=== PATIENT | male | born 1970 | race Caucasian/White ===

== ENCOUNTER → 2018-03-14 08:14 | Outpatient (CLI) | payer BC ==
[~2018-03-14 08:14] MED LIST: CARAFATE1 G PO; HYDROCODON-ACE1 EAC7 PO; LOSARTAN POTASS25 MG PO; METOPROLOL TART50 MG PO; PROTONIX20 MG PO
[2018-04-05 06:35] VITALS: BMI 28.5
== END | disposition home or self-care (01) ==
LOC: D.US 08:14
DX: R10.9 Unspecified abdominal pain (principal)

== ENCOUNTER → 2018-03-21 12:23 | Outpatient (CLI) | payer BC ==
[2018-04-05 06:35] VITALS: BMI 28.5
== END | disposition home or self-care (01) ==
LOC: D.NM 12:23
DX: K83.8 Other specified diseases of biliary tract (principal)

== ENCOUNTER 2018-04-05 06:00 | Day surgery (SDC) | payer BC ==
[2018-04-04 16:33] LABS: HEMATOCRIT 41.4 % (42.0-54.0); HEMOGLOBIN 14.6 g/dL (13.5-17.5); MCH 31.5 pg (26.0-34.0); MCHC 35.3 g/dL (31.0-37.0); MCV 89.2 fL (80.0-100.0); MEAN PLATELET VOLUME 10.2 fL (7.4-10.4); RBC 4.64 10x6/uL (4.20-6.10); RDW 12.6 % (11.5-14.5)
[~2018-04-05] VITALS: Ht 170.2 cm; Wt 82.6 kg
[~2018-04-05 06:00] MED LIST changes: -HYDROCODON-ACE1 EAC7 PO
[2018-04-05 06:35] VITALS: BP 106/52; Ht 170.2 cm; Wt 82.6 kg
[2018-04-05] MEDS ORDERED: HYDROCODON-ACE1 EAC7 PO (08:42)
== END 2018-04-05 12:15 | disposition home or self-care (01) ==
LOC: D.OPS 06:00 → D.PAN 13:00
PROVIDERS: Anesthesiology
DX: K81.1 Chronic cholecystitis (principal); Z01.812 Encounter for preprocedural laboratory examination

== ENCOUNTER 2018-06-19 06:02 | Day surgery (SDC) | payer BC ==
[~2018-06-19] VITALS: Ht 170.2 cm; Wt 83.1 kg
[~2018-06-19 06:02] MED LIST changes: +HYDROCODON-ACE1 EAC7 PO
[2018-06-19 06:22] LABS: HEMATOCRIT 41.2 % (42.0-54.0); HEMOGLOBIN 14.5 g/dL (13.5-17.5); MCH 31.7 pg (26.0-34.0); MCHC 35.2 g/dL (31.0-37.0); MCV 90.2 fL (80.0-100.0); MEAN PLATELET VOLUME 9.5 fL (7.4-10.4); RBC 4.57 10x6/uL (4.20-6.10); RDW 12.2 % (11.5-14.5); WBC 6.7 10x3/uL (4.8-10.8)
[2018-06-19 07:13] VITALS: BP 110/74; Ht 170.2 cm; Wt 83.1 kg
== END 2018-06-19 09:35 | disposition home or self-care (01) ==
LOC: D.OPS 06:02
PROVIDERS: Anesthesiology
DX: K21.0 Gastro-esophageal reflux disease with esophagitis (principal); K44.9 Diaphragmatic hernia without obstruction or gangrene; K31.7 Polyp of stomach and duodenum; K29.50 Unspecified chronic gastritis without bleeding; Z01.812 Encounter for preprocedural laboratory examination